=== PATIENT | female | born 1985 | race Caucasian/White ===

== ENCOUNTER 2022-03-06 08:21 | Day surgery (SDC) | payer BC ==
[2022-03-06] MEDS ORDERED: CLINDAMYCIN-D5W 900 MG/50 ML*** 900 MG/50 ML BAG IV STA (08:33)
[2022-03-06] MEDS ORDERED: CLINDAMYCIN-D5W 900 MG/50 ML*** 0 MG/0 ML BAG IV ONE (08:47)
[2022-03-06] MEDS ORDERED: Lactated Ringers 1,000 ML IV ONE (08:48)
[2022-03-06 08:53] VITALS: BP 121/80; PULSE 72; O2SAT 98
[2022-03-06] MEDS ORDERED: Lactated Ringers 1,000 ML IV SCH (09:00)
== END 2022-03-06 13:05 | disposition home or self-care (01) ==
LOC: SDC 08:21
PROVIDERS: ATTEND Obstetrics & Gynecology
DX: Z53.8 Procedure and treatment not carried out for other reasons (principal)
CPT/HCPCS: 81025